=== PATIENT | female | born 1975 | race Caucasian/White ===

== ENCOUNTER 2018-11-17 15:50 | Emergency (ER) | payer OTHER ==
[2018-11-17 16:33] VITALS: BP 120/77; PULSE 84; TEMP 97.8; BMI 27.4
[2018-11-17] MEDS ORDERED: ONDANSETRON 4 MG/2 ML VIAL IVPB ONE (17:23)
[2018-11-17] MEDS ORDERED: SODIUM CHLORIDE 1,000 ML IV STA ×2 (17:23→20:53)
[2018-11-17] MEDS ORDERED: ACETAMINOPHEN 1000 MG/100 ML VIAL (NON FORMULARY) IVPB ONE (17:23)
[2018-11-17] MEDS ORDERED: FAMOTIDINE 20 MG/50 ML IVPB 20 MG/50 ML MG IVPB ONE ×2 (17:25→18:41)
[2018-11-17] MEDS ORDERED: ACETAMINOPHEN INJECTION 100 ML IVPB ONE (17:30)
[2018-11-17] MEDS ORDERED: ONDANSETRON 4 MG/2 ML VIAL ONE (17:31)
--- NOTE | 2018-11-17 17:32 | PDOC ---
History of Present Illness - General Chief Complaint: Pain, Acute Stated Complaint: ABDOMINAL PAIN Time Seen by Provider: 11/17/18 17:12 History Source: Patient Exam Limitations: No Limitations - History of Present Illness Initial Comments: 11/17/18 17:27 43y F with PMH of HLD, Asthma, Depression/Anxiety presenting to ED with complaints of abdominal pain, n/v/d x1 month. Patient states that today the pain worsened which prompted her ED visit. She states the pain is in the RUQ, non radiating, constant, no alleviating or worsening factors. Pt states she has been vomiting and having diarrhea everyday. She is unable to eat anything without throwing up and states that there is occasional streaks of blood. She also states there is red blood in the stool occasionally. Denies recent travel, fevers, chest pain, sob, back pain, headache. LMP >1y ago. Has had in the past. She has been taking naproxen for the pain without relief. Denies history of STDs/HIV. Has a GI appointment next week. She has gone to [facility] for the same problem and was told she has an enlarged gall bladder. PMD: Jodi PMH: see hpi PSH: section Meds: fenofibrate, atorvastatin, Ativan, Riserdal, albuterol inhaler Allergies: levonorgestrel Social: 7 cigarettes/day, marijuana use. Denies alcohol, iv drug use. Past History - Past Medical History Allergies/Adverse Reactions: Allergies Allergy/AdvReac Type Severity Reaction Status Date / Time ethinyl estradiol Allergy Verified 11/17/18 16:04 [From [facility] (91)] levonorgestrel Allergy Verified 11/17/18 16:04 [From [facility] (91)] Asthma: Yes COPD: No Hypercholesterolemia: Yes Psychiatric Problems: Yes Other medical history: depression - Surgical History GI Surgery: Yes (kidney stones) - Immunization History Immunization Up to Date: No - Psycho Social/Smoking Cessation Hx Smoking History: Current every day smoker Have you smoked in the past 12 months: Yes Number of Cigarettes Smoked Daily: 4 Information on smoking cessation initiated: No Hx Alcohol Use: No Drug/Substance Use Hx: No Review of Systems - Review of Systems Constitutional: Yes: See HPI. No: Chills, Fever HEENTM: No: Symptoms Reported Respiratory: No: Cough, Shortness of Breath Cardiac (ROS): Yes: Lightheadedness. No: Chest Pain, Syncope ABD/GI: Yes: See HPI, Diarrhea, Nausea, Vomiting : No: Symptoms Reported Musculoskeletal: No: Symptoms Reported Integumentary: No: Symptoms Reported Neurological: No: Symptoms reported *Physical Exam - Vital Signs Last Vital Signs Temp Pulse Resp BP Pulse Ox 97.8 F 84 18 120/77 99 11/17/18 16:02 11/17/18 16:02 11/17/18 16:02 11/17/18 16:02 11/17/18 16:02 - Physical Exam General Appearance: Yes: Appropriately Dressed, Mild Distress, Obese HEENT: positive: EOMI, MAICO, Normal ENT Inspection, Other (poor dentition) Neck: positive: Trachea midline, Supple Respiratory/Chest: positive: Lungs Clear, Normal Breath Sounds. negative: Crackles, Rales, Rhonchi, Stridor, Wheezing Cardiovascular: positive: Regular Rhythm, Regular Rate, S1, S2. negative: Edema , JVD, Murmur Vascular Pulses: Dorsalis-Pedis (R): 2+, Doralis-Pedis (L): 2+ Gastrointestinal/Abdominal: positive: Normal Bowel Sounds, Soft, Tenderness (RUQ ). negative: Guarding, Mass Rectal Exam: positive: normal exam, normal rectal tone. 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 Has gone to other hospitals, and pmd for same complaint. Was told that she has an enlarged gallbladder. GI appointment next week. Presenting today for pain that is worse. vitals wnl ddx includes but not limited to cholecystitis, choledocolithiasis, cholangitis, hepatitis, gastritis, pud, nephrolithiasis, colitis, sbo, atypical acs will order labs including trop, lipase, lact, preg, ua,ucx, coags, ts. ekg, sono, ofirmev, pepcid, zofran 1L NS. reassess 11/17/18 20:12 still in pain, given 4mg morphine. labs show wbc 11. all other labs wnl. no uti. pt is afebrile. tender only in RUQ. pending sono read. no episodes of vomiting in ED US: Enlarged liver measuring 20 cm in sagittal length with increased echotexture compatible with steatosis. Limited visualization of the right lobe secondary to overlying bowel gas and patient discomfort Mildly distended gallbladder. No intraluminal stones or sludge visualized. The gallbladder wall is normal in thickness measuring 2.7 mm. No pericholecystic fluid. Positive sonographic Levy sign was reported. The common bile duct is within normal limits measuring 3.2 mm The pancreas, right kidney and visualized portions of the abdominal aorta are unremarkable 11/17/18 21:23 pt seen clutching R side when going in to reassess. will give more pain medication and order CT 11/17/18 23:39 CT: The liver is enlarged measuring 22 cm in craniocaudal dimension with fatty changes The gallbladder is normal The spleen, pancreas and adrenal glands are unremarkable. The kidneys are normal in size and enhance symmetrically without hydronephrosis. Small cortical cyst in the mid left kidney. Incidental retroaortic left renal vein There is no bowel distention or appreciable thickening. The appendix is normal The pelvic organs are grossly normal No intra-abdominal free air, free fluid or loculated collections labs wnl, imaging shows liver steatosis. Pt not vomiting in ED, had drink in her hand which she was drinking upon initial assessment. Does not need admission to the hospital at this time. Has GI follow up next week. Will give Toradol for pain. Will give return precautions. Dispo: home Discharge - Discharge Information Problems reviewed: Yes Clinical Impression/Diagnosis: Abdominal pain Qualifiers: Abdominal location: right upper quadrant Qualified Code(s): R10.11 - Right upper quadrant pain Condition: Stable - Admission No - Follow up/Referral Referrals: Ivan Zapata MD [Primary Care Provider] - Godfrey,Peter K, MD [Staff Physician] - Pete Aguilar DO [Staff Physician] - Dakota Terrazas MD [Staff Physician] - - Patient Discharge Instructions Patient Printed Discharge Instructions: DI for Abdominal Pain-Adult Additional Instructions: You were seen in the emergency room for abdominal pain, nausea, vomiting and diarrhea. The ultrasound shows your gallbladder is enlarged and a fatty liver. The CT results are similar. No signs of an acute gallbladder infection, kidney stone or bowel abnormalities. Keep your appointment with the GI doctor next week. Let them know of your multiple ED visits and see if they can reschedule you sooner. I have also provided a list of GI doctors you can call as well. Come back to the emergency room if you have worsening symptoms or if a new or concerning symptom develops. - Post Discharge Activity
--- NOTE | 2018-11-17 18:11 | PDOC ---
Documentation entered by Eugenie Pennington SCRIBE, acting as scribe for Russell Murguia MD. Russell Murguia MD: This documentation has been prepared by the karenibisaac, Eugenie Pennington SCRIBE, under my direction and personally reviewed by me in its entirety. I confirm that the documentation accurately reflects all work, treatment, procedures, and medical decision making performed by me. Attending Attestation - Resident Resident Name: Ramila Beckham - ED Attending Attestation I have performed the following: I have examined & evaluated the patient, The case was reviewed & discussed with the resident, I agree w/resident's findings & plan, Exceptions are as noted - HPI HPI: 11/17/18 17:29 The patient is a 43 year old female with a past medical history significant for asthma, anxiety/depression on risperdone and HLD who presents to the emergency department with one month of RUQ pain, associated with decreased PO intake and diarrhea. The patient reports daily episodes of diarrhea, with intermittent episodes of hematochezia. She denies fevers, chills, dysuria, urgency, hematuria. She denies any triggers for the pain, states it is not worse postprandially. She has been evaluated in the emergency department at [facility], states she had negative labs and an ultrasound that showed a "enlarged gallbladder." She has never had surgery on her abdomen before. She smokes marijuana every few days. Denies any headache, dizziness, focal weakness or numbness, chest pain, shortness of breath, lower extremity edema, vaginal bleeding or discharge. States her last menstrual period was 1 year ago. Patient has an appointment with a substation wireman scheduled for next week. LMP: one year ago Allergies: ethinyl estradiol, levonorgestrel - Physicial Exam PE: 11/17/18 18:01 GENERAL: Awake, alert, and fully oriented, in no acute distress but appears uncomfortable lying in R lateral decubitus EYES: PERRLA, EOMI, sclera anicteric, conjunctiva clear ENT: Oropharynx clear without exudates. Moist mucosa. Poor dentition. NECK: Normal ROM, supple, no lymphadenopathy, JVD, or masses LUNGS: Breath sounds equal, clear to auscultation bilaterally. No wheezes, and no crackles HEART: Regular rate and rhythm, normal S1 and S2, no murmurs, rubs or gallops ABDOMEN: Soft, +RUQ ttp, neg murphys sign, normoactive bowel sounds. No guarding, no rebound. No masses. No CVAT. EXTREMITIES: Normal range of motion, no edema. No cords, erythema, or tenderness NEUROLOGICAL: Normal speech, cranial nerves intact, equal strength and sensation b/l SKIN: Warm, Dry, normal turgor, no rashes or lesions noted. - Medical Decision Making 11/17/18 18:07 43-year-old female presents the emergency department with 1 month of right upper quadrant pain associated with nausea and diarrhea, intermittently with some bright red blood streaks on her stool. Vitals within normal limits. Exam with right upper quadrant tenderness to palpation. Differential includes cholecystitis versus gastritis versus pancreatitis versus renal colic versus urinary tract infection. Plan for labs, urine test, urinalysis, right upper quadrant ultrasound , symptom control, and reassess. 11/17/18 23:39 Work-up has been unremarkable for Ms. Palafox. Ultrasound unremarkable. Due to persistent pain and tenderness, a CT scan of the abdomen and pelvis was obtained which showed no acute pathology. Her labs are within normal limits. Her urine test is negative. Her urinalysis is negative for infection. Pain improved with morphine and Toradol. Patient has follow-up appointment with the substation wireman next week. She is well-appearing, tolerating PO and clinically stable for discharge home. I discussed the physical exam findings, ancillary test results and final diagnoses with the patient. I answered all of the patient's questions. The patient was satisfied with the care received and felt comfortable with the discharge plan and treatment plan. The patient will call their primary care physician within 24 hours to arrange follow-up and will return to the Emergency Department with any new, persistent or worsening symptoms. Heart Score/ECG Review #1 11/17/18 18:16 Twelve-lead EKG was performed and reviewed by me. Normal sinus rhythm, rate 71. Normal axis and intervals. No ST elevations or T wave inversions.
[2018-11-17 18:13] LABS: BASO % 0.3 % (0-2.0); EOS % 0.9 % (0-4.5); HEMATOCRIT 41.6 % (32.4-45.2); LYMPH % 33.7 % (8-40); MCH 29.5 pg (25.7-33.7); MCHC 33.7 g/dl (32.0-36.0); MEAN CELL VOLUME 87.6 fl (80-96); MEAN PLT VOLUME 9.7 fl (7.5-11.1); MONO % 4.9 % (3.8-10.2); NEUT % 60.2 % (42.8-82.8); PLATELET COUNT 288 K/MM3 (134-434); RBC 4.75 M/mm3 (3.60-5.2); RDW 14.3 % (11.6-15.6)
[2018-11-17 18:14] LABS: URINE APPEARANCE CLEAR; URINE BILIRUBIN NEGATIVE (NEGATIVE); URINE COLOR YELLOW; URINE GLUCOSE (UA) NEGATIVE (NEGATIVE); URINE KETONE NEGATIVE (NEGATIVE); URINE LEUK ESTERASE NEGATIVE (NEGATIVE); URINE NITRITE NEGATIVE (NEGATIVE); URINE PROTEIN NEGATIVE (NEGATIVE); URINE UROBILINOGEN 0.2 mg/dL (0.2-1.0)
[2018-11-17 18:24] LABS: INR 0.97 (0.83-1.09); PROTHROMBIN TIME (PATIENT) 11.4 SEC (9.7-13.0)
[2018-11-17 18:26] LABS: ACTIVATED PTT 36.7 SECONDS (25.2-36.5)
[2018-11-17 18:31] LABS: BILIRUBIN,TOTAL 0.5 mg/dL (0.2-1); BLOOD UREA NITROGEN 18.7 mg/dL (7-18); CALCIUM 9.2 mg/dL (8.5-10.1); CREATININE 1.1 mg/dL (0.55-1.3); TOT PROT 7.5 g/dl (6.4-8.2)
[2018-11-17 18:33] LABS: LIPASE 319 U/L (73-393)
[2018-11-17] MEDS ORDERED: morphine CARPU-JECT 4 MG/1 ML DISP.SYRIN IVPUSH ONE ×2 (18:45→20:53)
[2018-11-17] MEDS ORDERED: morphine SULFATE 4 MG/ML VIAL ONE ×2 (18:56→21:00)
[2018-11-17] MEDS ORDERED: KETOROLAC TROMETHAMINE 30 MG/1 ML VIAL IVPUSH ONE (23:33)
[2018-11-17] MEDS ORDERED: KETOROLAC TROMETHAMINE 15 MG/ML VIAL ONE (23:41)
--- NOTE | 2018-11-18 22:00 | EKG ---
Test Reason : Blood Pressure : / mmHG Vent. Rate : 071 BPM Atrial Rate : 071 BPM P-R Int : 132 ms QRS Dur : 078 ms QT Int : 404 ms P-R-T Axes : 026 025 039 degrees QTc Int : 439 ms NORMAL SINUS RHYTHM NONSPECIFIC T WAVE ABNORMALITY ABNORMAL ECG NO PREVIOUS ECGS AVAILABLE Confirmed by Yessica Vasquez ([id number]) on 11/18/2018 10:00:13 PM Referred By: Confirmed By:Yessica Vasquez
== END 2018-11-17 23:49 | disposition home or self-care (01) ==
LOC: JER 15:50
PROC: 3E0337Z Introduction of Electrolytic and Water Balance Substance into Peripheral Vein, Percutaneous Approach (ICD-10-PCS; principal; 2018-11-17)
PROC: 3E033GC Introduction of Other Therapeutic Substance into Peripheral Vein, Percutaneous Approach (ICD-10-PCS; 2018-11-17)
PROC: 3E033GC Introduction of Other Therapeutic Substance into Peripheral Vein, Percutaneous Approach (ICD-10-PCS; 2018-11-17)
PROC: 3E033NZ Introduction of Analgesics, Hypnotics, Sedatives into Peripheral Vein, Percutaneous Approach (ICD-10-PCS; 2018-11-17)
PROC: 3E033NZ Introduction of Analgesics, Hypnotics, Sedatives into Peripheral Vein, Percutaneous Approach (ICD-10-PCS; 2018-11-17)
PROC: 3E0333Z Introduction of Anti-inflammatory into Peripheral Vein, Percutaneous Approach (ICD-10-PCS; 2018-11-17)
DX: R10.11 Right upper quadrant pain (principal); E78.5 Hyperlipidemia, unspecified; J45.909 Unspecified asthma, uncomplicated; F41.8 Other specified anxiety disorders; F32.9 Major depressive disorder, single episode, unspecified; Z88.8 Allergy status to other drugs, medicaments and biological substances
CPT/HCPCS: 36415; 74177-TC; 76705-TC; 80053; 81003; 82272; 83605; 83690; 84484; 84703; 85025; 85610; 85730; 86850; 86900; 86901; 87086; 93005; 93010; 96361; 96365; 96375; 96376; 99282-25; J0131; J7030

== ENCOUNTER 2021-11-16 11:54 | Emergency (ER) | payer OTHER ==
[2021-11-16 12:05] VITALS: TEMP 98.2; BMI 21.1
[2021-11-16] MEDS ORDERED: morphine SULFATE 4 MG/ML VIAL IVPUSH ONE (12:32)
[2021-11-16] MEDS ORDERED: ONDANSETRON 4 MG/2 ML VIAL IVPUSH ONE (12:32)
[2021-11-16] MEDS ORDERED: ONDANSETRON 4 MG/2 ML VIAL ONE (12:37)
[2021-11-16] MEDS ORDERED: morphine SULFATE 4 MG/ML VIAL ONE (12:37)
[2021-11-16] MEDS ORDERED: HYDROmorphone HCL CARPU-JECT 2 MG/1 ML DISP.SYRIN IVPUSH ONE (13:16)
[2021-11-16] MEDS ORDERED: HYDROmorphone HCl 2 MG/ML VIAL ONE ×2 (13:19→17:06)
[2021-11-16 13:41] LABS: BASO % 1.2 % (0-2.0); EOS % 0.6 % (0-4.5); HEMATOCRIT 44.2 % (32.4-45.2); HEMOGLOBIN 15.1 GM/dL (10.7-15.3); LYMPH % 50.1 % (8-40); MCH 31.3 pg (25.7-33.7); MCHC 34.2 g/dl (32.0-36.0); MEAN CELL VOLUME 91.6 fl (80-96); MEAN PLT VOLUME 9.3 fl (7.5-11.1); MONO % 5.4 % (3.8-10.2); NEUT % 42.7 % (42.8-82.8); PLATELET COUNT 228 10^3/uL (134-434); RBC 4.83 M/mm3 (3.60-5.2); RDW 13.7 % (11.6-15.6); WHITE BLOOD COUNT 8.5 K/mm3 (4.0-10.0)
[2021-11-16 13:47] LABS: INR 1.01 (0.83-1.09); PROTHROMBIN TIME (PATIENT) 11.6 SEC (9.7-13.0)
[2021-11-16 13:50] LABS: ACTIVATED PTT 39.5 SECONDS (25.2-36.5)
[2021-11-16 14:15] LABS: ALBUMIN 4.6 g/dl (3.4-5.0); BLOOD UREA NITROGEN 8.1 mg/dL (7-18); CALCIUM 10.3 mg/dL (8.5-10.1)
[2021-11-16 14:18] LABS: CREATININE 0.6 mg/dL (0.55-1.3)
[2021-11-16 14:20] LABS: BILIRUBIN,TOTAL 0.3 mg/dL (0.2-1); TOT PROT 8.1 g/dl (6.4-8.2)
[2021-11-16 16:26] LABS: PH,URINE 6.5 (5.0-8.0); URINE APPEARANCE CLEAR; URINE BILIRUBIN NEGATIVE (NEGATIVE); URINE COLOR YELLOW; URINE GLUCOSE (UA) NEGATIVE (NEGATIVE); URINE KETONE NEGATIVE (NEGATIVE); URINE LEUK ESTERASE NEGATIVE (NEGATIVE); URINE NITRITE NEGATIVE (NEGATIVE); URINE PROTEIN NEGATIVE (NEGATIVE); URINE UROBILINOGEN 0.2 mg/dL (0.2-1.0)
[2021-11-16] MEDS ORDERED: HYDROmorphone HCL CARPU-JECT 2 MG/1 ML DISP.SYRIN IVPB ONE (16:46)
[2021-11-16 17:21] VITALS: BP 102/68; PULSE 79; RESP 20
== END 2021-11-16 18:10 | disposition home or self-care (01) ==
LOC: JER 11:54
PROC: 3E033GC Introduction of Other Therapeutic Substance into Peripheral Vein, Percutaneous Approach (ICD-10-PCS; principal; 2021-11-16)
DX: R10.11 Right upper quadrant pain (principal); C16.9 Malignant neoplasm of stomach, unspecified
CPT/HCPCS: 36415; 71046-TC-FY; 76705-TC; 80053; 81003; 85025; 85610; 85730; 86850; 86900; 86901; 99285-25; C9803-CS; U0003; U0005

== ENCOUNTER 2022-01-21 15:19 | Inpatient (IN) | payer OTHER ==
[2022-01-21] MEDS ORDERED: HYDROmorphone HCL CARPU-JECT 2 MG/1 ML DISP.SYRIN IVPUSH ONE ×3 (16:09→23:20)
[2022-01-21] MEDS ORDERED: SODIUM CHLORIDE 0.9% 500 ML INFUS.BAG IV ONE (16:22)
[2022-01-21] MEDS ORDERED: ONDANSETRON 4 MG/2 ML VIAL IVPUSH ONE (16:23)
[2022-01-21] MEDS ORDERED: HYDROmorphone HCl 2 MG/ML VIAL ONE ×3 (17:26→23:29)
[2022-01-21] MEDS ORDERED: ONDANSETRON 4 MG/2 ML VIAL ONE (17:26)
[2022-01-21 17:43] LABS: BASO % 0.5 % (0-2.0); EOS % 0.2 % (0-4.5); HEMATOCRIT 43.5 % (32.4-45.2); HEMOGLOBIN 14.6 GM/dL (10.7-15.3); LYMPH % 41.5 % (8-40); MCHC 33.6 g/dl (32.0-36.0); MEAN CELL VOLUME 89.1 fl (80-96); MEAN PLT VOLUME 8.9 fl (7.5-11.1); NEUT % 51.8 % (42.8-82.8); PLATELET COUNT 256 10^3/uL (134-434); RBC 4.89 M/mm3 (3.60-5.2); RDW 12.8 % (11.6-15.6); WHITE BLOOD COUNT 12.1 K/mm3 (4.0-10.0)
[2022-01-21 17:49] LABS: INR 0.92 (0.83-1.09); PROTHROMBIN TIME (PATIENT) 10.6 SEC (9.7-13.0)
[2022-01-21 18:05] LABS: CALCIUM 9.5 mg/dL (8.5-10.1)
[2022-01-21 18:06] LABS: ALBUMIN 4.2 g/dl (3.4-5.0); BLOOD UREA NITROGEN 8.4 mg/dL (7-18); MAGNESIUM 2.4 mg/dL (1.8-2.4)
[2022-01-21 18:08] LABS: CREATININE 0.6 mg/dL (0.55-1.3)
[2022-01-21 18:11] LABS: BILIRUBIN,TOTAL 0.4 mg/dL (0.2-1); TOT PROT 7.7 g/dl (6.4-8.2)
[2022-01-21 19:23] LABS: EPI CELLS 19 /uL (0-25.1); HYALINE CASTS 2 /uL (0-3.1); URINE APPEARANCE TURBID; URINE BACTERIA 33 /uL (0-1359); URINE BILIRUBIN NEGATIVE (NEGATIVE); URINE COLOR YELLOW; URINE GLUCOSE (UA) NEGATIVE (NEGATIVE); URINE KETONE NEGATIVE (NEGATIVE); URINE LEUK ESTERASE TRACE (NEGATIVE); URINE NITRITE NEGATIVE (NEGATIVE); URINE PROTEIN NEGATIVE (NEGATIVE); URINE RBC 13 /uL (0-23.9); URINE UROBILINOGEN 0.2 mg/dL (0.2-1.0); URINE WBC 24 /uL (0-25.8)
[2022-01-21] MEDS ORDERED: ACETAMINOPHEN 1000 MG/100 ML BAG IVPB ONE (19:42)
[2022-01-21] MEDS ORDERED: FAMOTIDINE 20 MG/50 ML IVPB 20 MG/50 ML MG IVPB ONE ×2 (19:57→20:05)
[2022-01-21] MEDS ORDERED: KETOROLAC TROMETHAMINE 15 MG/ML VIAL IVPUSH ONE (19:58)
[2022-01-21] MEDS ORDERED: KETOROLAC TROMETHAMINE 15 MG/ML VIAL ONE (20:04)
[2022-01-21 20:48] LABS: HCG,QUALITATIVE URINE NEGATIVE
[2022-01-21] MEDS ORDERED: ACETAMINOPHEN INJECTION 100 ML IVPB ONE (20:55)
[2022-01-22] MEDS ORDERED: VANCOMYCIN 1,000 MG in DEXTROSE 5%-WATER - 250 ML IVPB SCH (01:15)
[2022-01-22] MEDS ORDERED: ACETAMINOPHEN 1000 MG/100 ML BAG IVPB ONE (01:25)
[2022-01-22] MEDS ORDERED: VANCOMYCIN/WATER FOR INJ (PEG) 1,000 MG/200 ML BAG IVPB ONE ×2 (01:26→01:34)
[2022-01-22] MEDS ORDERED: ACETAMINOPHEN INJECTION 100 ML IVPB ONE (01:26)
[2022-01-22] MEDS ORDERED: MELATONIN 5 MG TABLETS ONE (01:42)
[2022-01-22] MEDS: MELATONIN 5 MG TABLETS PO PRN ×3 (01:43→23:24)
[2022-01-22] MEDS ORDERED: LACTATED RINGERS SOLUTION 1,000 ML/1,000 ML INFUS.BAG IV SCH (01:45)
[2022-01-22] MEDS ORDERED: VANCOMYCIN/WATER 1250 MG 1,250 MG/250 ML BAG IVPB SCH (02:00)
[2022-01-22] MEDS ORDERED: PIPERACILLIN/TAZOB 3.375 GM 3.375 GM in DEXTROSE 5%-WATER - 50 ML IVPB SCH (02:00)
[2022-01-22] MEDS ORDERED: PIPERACILLIN/TAZOB 3.375 GM 3.375 GM/50 ML BAG IVPB ONE (02:31)
[2022-01-22] MEDS: PIPERACILLIN/TAZOB 3.375 GM 3.375 GM in DEXTROSE 5%-WATER - 50 ML IVPB SCH ×2 (02:39→09:08)
[2022-01-22 03:36] VITALS: BMI 21.4
[2022-01-22] MEDS: HYDROmorphone HCl 2 MG/ML VIAL IVPB PRN ×4 (03:42→22:12)
[2022-01-22] MEDS ORDERED: ONDANSETRON 4 MG/2 ML VIAL IVPUSH ONE (07:30)
[2022-01-22 07:55] LABS: HEMATOCRIT 34.6 % (32.4-45.2); MCH 31.1 pg (25.7-33.7); MCHC 34.5 g/dl (32.0-36.0); MEAN CELL VOLUME 90.1 fl (80-96); MEAN PLT VOLUME 8.7 fl (7.5-11.1); PLATELET COUNT 187 10^3/uL (134-434); RBC 3.84 M/mm3 (3.60-5.2); RDW 12.6 % (11.6-15.6); WHITE BLOOD COUNT 10.8 K/mm3 (4.0-10.0)
[2022-01-22 08:11] LABS: CALCIUM 8.9 mg/dL (8.5-10.1)
[2022-01-22 08:12] LABS: ALBUMIN 3.4 g/dl (3.4-5.0); BLOOD UREA NITROGEN 8.2 mg/dL (7-18)
[2022-01-22 08:15] LABS: CREATININE 0.8 mg/dL (0.55-1.3); PHOSPHOROUS 5.3 mg/dL (2.5-4.9)
[2022-01-22 08:16] LABS: BILIRUBIN,TOTAL 0.5 mg/dL (0.2-1)
[2022-01-22 09:53] LABS: BILIRUBIN,DIRECT 0.1 mg/dL (0.0-0.2)
[2022-01-22] MEDS ORDERED: HYDROmorphone HCl 2 MG/ML VIAL IVPB PRN (11:56)
[2022-01-22] MEDS ORDERED: oxyCODONE HCL 5 MG TABLET PO PRN (11:57)
[2022-01-22] MEDS: SERTRALINE HCL 50 MG TABLET (FP) PO SCH (15:48)
[2022-01-22] MEDS: LORazepam 1 MG TABLET PO SCH (15:48)
[2022-01-22] MEDS: AMPICILLIN NA/SULBACTAM NA 1.5 GM in SODIUM CHLORIDE 100 ML IVPB SCH (17:38)
[2022-01-22] MEDS ORDERED: HYDROMORPHONE HCL 1 MG/ML PO SCH (18:00)
[2022-01-22] MEDS ORDERED: METHADONE PO SCH (22:00)
[2022-01-22] MEDS: MONTELUKAST NA 10 MG TABLET PO SCH (22:10)
[2022-01-22] MEDS: MIRTAZAPINE 15 MG TABLET (FP) PO SCH (22:10)
[2022-01-22] MEDS: DOXEPIN HCL 25 MG CAPSULE PO SCH (22:10)
[2022-01-23] MEDS: AMPICILLIN NA/SULBACTAM NA 1.5 GM in SODIUM CHLORIDE 100 ML IVPB SCH ×2 (01:54→09:38)
[2022-01-23] MEDS: HYDROmorphone HCl 2 MG/ML VIAL IVPB PRN ×3 (05:56→18:05)
[2022-01-23] MEDS ORDERED: ONDANSETRON 4 MG/2 ML VIAL IVPB PRN (08:37)
[2022-01-23] MEDS: LORazepam 1 MG TABLET PO SCH (09:37)
[2022-01-23] MEDS: SERTRALINE HCL 50 MG TABLET (FP) PO SCH (09:37)
[2022-01-23] MEDS: CYPROHEPTADINE HCL 4 MG TABLET PO SCH (09:37)
[2022-01-23] MEDS: risperiDONE 1 MG TABLET PO SCH (09:37)
[2022-01-23] MEDS ORDERED: PATIENT'S OWN MEDICATION (NON-FORMULARY) (Oxycodone Hcl [Oxaydo] 5 MG Tablet.Orl) PO SCH (10:00)
[2022-01-23] MEDS: BUDESONIDE/FORMETEROL FUMARATE 80/4.5 mcg INHALER IH SCH ×2 (12:44→21:56)
[2022-01-23] MEDS ORDERED: ALBUTEROL SO4 HFA INHALER IH PRN (16:44)
[2022-01-23] MEDS: MIRTAZAPINE 15 MG TABLET (FP) PO SCH (21:57)
[2022-01-23] MEDS: DOXEPIN HCL 25 MG CAPSULE PO SCH (21:57)
[2022-01-23] MEDS: MONTELUKAST NA 10 MG TABLET PO SCH (21:57)
[2022-01-24] MEDS: HYDROmorphone HCl 2 MG/ML VIAL IVPB PRN ×3 (00:30→13:22)
[2022-01-24] MEDS: LORazepam 1 MG TABLET PO SCH (13:13)
[2022-01-24] MEDS: SERTRALINE HCL 50 MG TABLET (FP) PO SCH (13:13)
[2022-01-24] MEDS: risperiDONE 1 MG TABLET PO SCH (13:13)
[2022-01-24] MEDS: BUDESONIDE/FORMETEROL FUMARATE 80/4.5 mcg INHALER IH SCH ×2 (13:14→21:33)
[2022-01-24] MEDS: CYPROHEPTADINE HCL 4 MG TABLET PO SCH (14:38)
[2022-01-24] MEDS: MIRTAZAPINE 15 MG TABLET (FP) PO SCH (21:32)
[2022-01-24] MEDS: DOXEPIN HCL 25 MG CAPSULE PO SCH (21:33)
[2022-01-24] MEDS: MONTELUKAST NA 10 MG TABLET PO SCH (21:33)
[2022-01-24 23:29] LABS: CALCIUM 9.7 mg/dL (8.5-10.1)
[2022-01-24 23:30] LABS: BLOOD UREA NITROGEN 12.2 mg/dL (7-18)
[2022-01-24 23:32] LABS: CREATININE 0.7 mg/dL (0.55-1.3)
[2022-01-24 23:34] LABS: BILIRUBIN,TOTAL 0.6 mg/dL (0.2-1); TOT PROT 7.5 g/dl (6.4-8.2)
[2022-01-24 23:38] LABS: ALBUMIN 4.1 g/dl (3.4-5.0)
[2022-01-25] MEDS ORDERED: DOCUSATE SODIUM 100 MG CAPSULE (FP) PO SCH (10:00)
[2022-01-25] MEDS: CYPROHEPTADINE HCL 4 MG TABLET PO SCH (10:25)
[2022-01-25] MEDS: risperiDONE 1 MG TABLET PO SCH (10:25)
[2022-01-25] MEDS: LORazepam 1 MG TABLET PO SCH (10:25)
[2022-01-25] MEDS: SERTRALINE HCL 50 MG TABLET (FP) PO SCH (10:26)
[2022-01-25] MEDS: BUDESONIDE/FORMETEROL FUMARATE 80/4.5 mcg INHALER IH SCH (10:26)
[2022-01-25 10:52] LABS: BASO % 0.4 % (0-2.0); EOS % 0.8 % (0-4.5); HEMATOCRIT 40.5 % (32.4-45.2); HEMOGLOBIN 13.8 GM/dL (10.7-15.3); LYMPH % 55.8 % (8-40); MCH 30.3 pg (25.7-33.7); MCHC 34.2 g/dl (32.0-36.0); MEAN CELL VOLUME 88.5 fl (80-96); MEAN PLT VOLUME 8.7 fl (7.5-11.1); MONO % 6.8 % (3.8-10.2); NEUT % 36.2 % (42.8-82.8); PLATELET COUNT 245 10^3/uL (134-434); RBC 4.58 M/mm3 (3.60-5.2); WHITE BLOOD COUNT 6.3 K/mm3 (4.0-10.0)
[2022-01-25 11:22] LABS: BLOOD UREA NITROGEN 9.3 mg/dL (7-18); CALCIUM 9.9 mg/dL (8.5-10.1)
[2022-01-25 11:23] LABS: ALBUMIN 4.2 g/dl (3.4-5.0)
[2022-01-25 11:26] LABS: CREATININE 0.6 mg/dL (0.55-1.3)
[2022-01-25 11:27] LABS: BILIRUBIN,TOTAL 1.2 mg/dL (0.2-1); TOT PROT 7.6 g/dl (6.4-8.2)
[2022-01-25 12:37] LABS: HIV INTERPRETATION NEGATIVE (NEGATIVE)
[2022-01-25 13:27] VITALS: BP 104/80; PULSE 101; RESP 19; TEMP 99.1
[2022-01-25 14:12] LABS: CHOLESTEROL 292 mg/dL (50-200); HDL CHOLESTEROL 47 mg/dL (40-60); LDL CHOLESTEROL (ONLY DFH) 193 mg/dl (5-100); TRIGLYCERIDES 258 mg/dL (0-150)
[2022-01-25 14:55] LABS: BILIRUBIN,DIRECT 0.1 mg/dL (0.0-0.2)
[2022-01-25] MEDS ORDERED: POLYETHYLENE GLYCOL (HEALTHYLAX) 3350 17 GM PACKET PO PRN (16:01)
== END 2022-01-25 18:10 | disposition home or self-care (01) ==
LOC: JER 15:19 → JERBED 23:03 → J7W 01-22 03:18
PROVIDERS: ADMIT Internal Medicine; ATTEND Internal Medicine
DX: K80.50 Calculus of bile duct without cholangitis or cholecystitis without obstruction (principal); F41.8 Other specified anxiety disorders; E78.5 Hyperlipidemia, unspecified; J45.909 Unspecified asthma, uncomplicated; C16.9 Malignant neoplasm of stomach, unspecified; R11.2 Nausea with vomiting, unspecified; B19.10 Unspecified viral hepatitis B without hepatic coma; R00.0 Tachycardia, unspecified; K59.03 Drug induced constipation; T40.2X5A Adverse effect of other opioids, initial encounter; F13.20 Sedative, hypnotic or anxiolytic dependence, uncomplicated; R94.5 Abnormal results of liver function studies; M54.50 Low back pain, unspecified; G89.29 Other chronic pain; K76.0 Fatty (change of) liver, not elsewhere classified
CPT/HCPCS: 0241U-QW; 36415; 71045-TC-FY; 74177-TC; 76705-TC; 78226-TC; 80053; 80061; 81003; 82248; 82977; 83036; 83605; 83690; 83735; 84100; 84484; 84703; 85025; 85027; 85610; 85730; 86704; 86709; 86803; 86850; 86900; 86901; 87040; 87086; 87186; 87340; 87389; 87517; 93005; 93010; 99285-25; A9537; J2794; Q9967